=== PATIENT | male | born 1955 | race Caucasian/White ===

== ENCOUNTER → 2023-07-15 12:26 | Outpatient (CLI) | payer OTHER, SELFPAY ==
[2023-07-15 13:30] LABS: C-Reactive Protein Quant < 0.5 mg/dL (<1.0)
[2023-07-15 13:39] LABS: Erythrocyte Sedimentation Rate 6 MM/HR (0-15)
== END ==
PROVIDERS: PCP Internal Medicine; Referring Provider Orthopaedic Surgery Adult Reconstructive Orthopaedic Surgery; Visit Provider Orthopaedic Surgery Adult Reconstructive Orthopaedic Surgery
DX: R70.0 Elevated erythrocyte sedimentation rate (principal); R79.82 Elevated C-reactive protein (CRP)
CPT/HCPCS: 85651; 86140